=== PATIENT | female | born 1995 | race Caucasian/White ===

== ENCOUNTER 2016-05-30 19:10 | Emergency (ER) | payer SELFPAY ==
[~2016-05-30] VITALS: Ht 157.4 cm; Wt 54.4 kg
[2016-05-30] MEDS ORDERED: AMOXICILLIN500 M2 PO (21:17)
[2016-05-30] MEDS ORDERED: PREDNISONE50 MG PO (21:18)
== END 2016-05-30 21:51 | disposition home or self-care (01) ==
LOC: ED 19:10
DX: J06.9 Acute upper respiratory infection, unspecified (principal); J40 Bronchitis, not specified as acute or chronic